=== PATIENT | male | born 1940 | race African-American/Black ===

== ENCOUNTER 2017-08-31 18:43 | Emergency (ER) | payer OTHER ==
[2017-08-31] MEDS: ACETAMINOPHEN/HYDROcodone 325 MG/5 MG TAB PO (19:19)
== END 2017-08-31 19:34 | disposition home or self-care (01) ==
LOC: PHEFT 18:43
DX: M54.2 Cervicalgia (principal); M54.9 Dorsalgia, unspecified; S81.811D Laceration without foreign body, right lower leg, subsequent encounter; I10 Essential (primary) hypertension; E78.00 Pure hypercholesterolemia, unspecified; K21.9 Gastro-esophageal reflux disease without esophagitis; W45.8XXD Other foreign body or object entering through skin, subsequent encounter; Z79.899 Other long term (current) drug therapy; Z87.19 Personal history of other diseases of the digestive system
CPT/HCPCS: 99283